=== PATIENT | female | born 1955 | race Caucasian/White ===

== ENCOUNTER → 2019-05-18 | Outpatient (CLI) | payer OTHER ==
[~2019-05-18] MED LIST: ACYCLOVIR 200200 MG PO; CIPRO500 MG PO; CIPROFLOXACIN500 M3; CYCLOBENZAPRINE5 MG; ESTROTEST PO; EXCEDRIN CAPLE1 EACH PO; FLAGYL500 MG; FLAGYL500 MG PO; FLEXERIL PO; HYDROCODONE-AP1 EAC6 PO; LIPITOR10 MG PO; LISINOPRIL10 MG; PERCOCET 10-321 EACH PO; PHENERGAN 25 MG25 M1 PO; POTASSIUM20 PO; SLEEPING50 MG; TRAMADOL 50 MG50 MG PO; TRIFLEX PO; ZOFRAN ODT4 MG PO
== END ==
LOC: M.RAD 10:19
DX: M77.32 Calcaneal spur, left foot (principal)

== ENCOUNTER 2020-04-30 18:12 | Emergency (ER) | payer OTHER ==
[~2020-04-30] VITALS: Ht 177.8 cm; Wt 81.7 kg
[2020-04-30] MEDS ORDERED: MULTIVITAMINS1 EAC7 PO (18:29)
[2020-04-30 20:11] VITALS: BP 122/68
== END 2020-04-30 20:11 | disposition home or self-care (01) ==
LOC: M.ERS 18:12
DX: R60.0 Localized edema (principal); I10 Essential (primary) hypertension; Z90.710 Acquired absence of both cervix and uterus; Z96.651 Presence of right artificial knee joint; Z79.899 Other long term (current) drug therapy

== ENCOUNTER → 2020-10-03 | Outpatient (CLI) | payer OTHER ==
[~2020-10-03] MED LIST changes: +MULTIVITAMINS1 EAC7 PO
== END ==
LOC: M.ULTRA 14:34
PROVIDERS: ATTEND Internal Medicine
DX: M71.21 Synovial cyst of popliteal space [Baker], right knee (principal); M79.89 Other specified soft tissue disorders

== ENCOUNTER → 2021-08-10 | Outpatient (CLI) | payer OTHER | LOC: M.LAB 05:46 | PROVIDERS: ATTEND Anesthesiology | DX: Z01.812 Encounter for preprocedural laboratory examination (principal); Z20.822 Contact with and (suspected) exposure to COVID-19; E87.6 Hypokalemia ==